=== PATIENT | female | born 1985 | race American Indian/Alaskan Native ===

== ENCOUNTER 2018-04-14 11:30 | Outpatient (RCR) | payer OTHER | END 2018-05-06 | disposition home or self-care (01) | LOC: MKS.ESL.PT | DX: R10.2 Pelvic and perineal pain (principal) ==

== ENCOUNTER → 2019-11-03 | Outpatient (CLI) | payer OTHER | LOC: COL.RAD 08:39 | DX: R13.14 Dysphagia, pharyngoesophageal phase (principal) ==